=== PATIENT | male | born 1980 | race Caucasian/White ===

== ENCOUNTER → 2017-06-28 | Day surgery (SDC) | payer OTHER ==
[2017-06-23 15:04] VITALS: Ht 177.8 cm; Wt 104.5 kg
[~2017-06-28] VITALS: Ht 177.8 cm; Wt 104.5 kg
[~2017-06-28] MED LIST: ATROPINE SULFATE 0.1 MG/ML 5ML SYR IV PRN; BUPIVACAINE/EPINEPHRINE 0.5% MPF 1:200,000 30 ML VIAL ONE; CEFAZOLIN 2000MG IV PUSH 15 ML IV SCH; DEXAMETHASONE SOD INJ 4 MG/ML VIAL ONE; EpHEDrine SULFATE INJ 50 MG/ML AMP IV PRN; FENTANYL CITRATE INJ 50 MCG/1 ML 2 ML VIAL IV PRN; FENTANYL CITRATE INJ 50 MCG/1 ML 2 ML VIAL ONE; FLUMAZENIL 0.1 MG/1 ML 10 ML VIAL IV PRN; HYDROmorphone INJ 2 MG/ML SYR/VIAL IV PRN; KETOROLAC TROMETHAMINE 30 MG/ML VIAL ONE; LABETALOL HCL IV 5 MG/ML 20ML IV PRN; LACTATED RINGER'S 1000ML 1,000 ML IV SCH; LIDOCAINE HCL 2% 2 ML VIAL (20MG/ML) ONE; MEPERIDINE HCL 25 MG/ML CARP IV PRN; MIDAZOLAM HCL 1 MG/ML 2ML VIAL ONE; MULT-506 PO; NALOXONE HCL 0.4 MG/1 ML VIAL/CARP IV PRN; ONDANSETRON INJ 2 MG/ML 2 ML VIAL IV PRN; ONDANSETRON INJ 2 MG/ML 2 ML VIAL ONE; PHENYLEPHRINE 100MCG/ML 5ML SYR IV PRN; PROPOFOL IV EMULSION 10 MG/ML 20 ML VIAL IV ONE; SODIUM CHLORIDE 0.9% 1000ML 1,000 ML IV SCH; TRAM-453 PO; TRAMADOL HCL 50 MG TAB PO PRN
--- NOTE | 2017-06-28 09:48 | History & Physical Bridge - [place] ---
H&P Re-Evaluation Bridge Note: I have examined the patient, reviewed the History & Physical and in the interval since the performance of the History & Physical I have noted the following changes of clinical significance: No changes noted. I will be doing the surgery in Dr. Arevalo's absence. Risks explained and patient understands. RAMSES Bell MD.
--- NOTE | 2017-06-28 10:42 | [facility] Post Operative Brief Note ---
Immediate Operative Summary Operative Date Jun 28, 2017. Pre-Operative Diagnosis Left Volar Wrist Ganglion Cyst Post-Operative Diagnosis same Procedure(s) Performed Left Volar Wrist Excision Ganglion Cyst Surgeon Dr. Mirtha Bell Ribbon Hand Surgeon(s) Cristobal Sousa PA-C Estimated Blood Loss Minimal Findings Consistent with Post-Op Diagnosis Specimens A. Left Wrist Mass Drains None Anesthesia Type General Complication(s) none
--- NOTE | 2017-06-28 10:42 | Discharge Instructions-SurgCtr ---
Discharge Instructions Date of Service Jun 28, 2017. Visit Reason for Visit: Painful Ganglion Cyst Volar Left Wtist Discharge Discharge Diagnosis / Problem: left wrist mass, ganglion cyst Discharge Goals Goal(s): Decrease discomfort Activity Recommendations Activity Limitations: per Instructions/Follow-up section Anesthesia . Post Anesthesia Instructions: If you have had General Anesthesia or IV Sedation: * Do not drive today. * Resume driving when surgeon permits. * Do not make important decisions or sign legal documents today. * Call surgeon for: 1. Temperature elevations greater than 101 degrees F. 2. Uncontrollable pain. 3. Excessive bleeding. 4. Persistent nausea and vomiting. 5. Medication intolerance (nausea, vomiting or rash). * For nausea and vomiting use only clear liquids such as: tea, soda, bouillon until nausea subsides, then gradually increase diet as tolerated. * If you have any concerns or questions, call your surgeon's office. If physician is unavailable and it is an emergency, call 911 or go to the nearest emergency room. . Instructions / Follow-Up Instructions / Follow-Up MEDICATIONS: * Resume previous medications unless instructed otherwise by your surgeon. * Always take pain medication on a full stomach or with food to avoid upset stomach. * Do not drink alcohol or drive while taking narcotics. * Ibuprofen or Tylenol may be taken if narcotic not needed. SPECIAL CARE INSTRUCTIONS: __ None __ Keep extremity elevated and iced x 48 hours; apply ice 20-30 minutes 8-10 times/day. May remove at night. __ Sling __24 hrs/day __ Remove at night __ Shoulder Immobilizer __ 24 hrs/day __ Remove at night _x_ Dressing _x_ Maintain until seen in office, may shower with plastic over site __ Remove dressings in 24-48 hours and then may shower __ Cover incisions with band-aids after showering __ Do not remove steri-strips Call physician if chills or temperature rises above 102 degrees or pain unrelieved by prescribed pain medications at . follow up in 2 weeks . Diet Recommendations Home Diet: resume previous diet Procedures Procedures Performed: Left Volar Wrist Excision Ganglion Cyst Pending Studies Studies pending at discharge: no Medical Emergencies . Who to Call and When: Medical Emergencies: If at any time you feel your situation is an emergency, please call 911 immediately. . Non-Emergent Contact Non-Emergency issues call your: Surgeon . . "Provider Documentation" section prepared by Saúl Sousa. .
--- NOTE | 2017-06-28 11:39 | Anesthesia Progress Nt - [facility] ---
Anesthesia Post Op Note Date & Time Jun 28, 2017 at 11:39 Vital Signs Pain Intensity: 0 Vital Signs Past 12 Hours Date Time Temp Pulse Resp B/P (MAP) Pulse Ox O2 Delivery O2 Flow Rate FiO2 06/28/17 11:21 74 138/83 (101) 94 Room Air 06/28/17 11:14 73 15 06/28/17 11:14 72 15 96 06/28/17 11:13 36.3 71 20 126/84 96 Room Air 06/28/17 11:13 72 18 96 06/28/17 11:13 72 18 06/28/17 11:12 79 16 95 06/28/17 11:12 79 16 06/28/17 11:11 126/84 06/28/17 11:07 73 16 06/28/17 11:07 72 16 96 06/28/17 11:06 131/79 06/28/17 11:02 79 22 97 06/28/17 11:02 78 22 06/28/17 11:01 145/104 06/28/17 10:58 144/92 06/28/17 10:57 92 21 97 06/28/17 10:57 91 21 06/28/17 10:56 143/117 06/28/17 10:53 86 17 06/28/17 10:53 87 17 100 06/28/17 10:52 86 18 99 06/28/17 10:52 87 18 06/28/17 10:51 123/104 06/28/17 10:49 88 16 100 06/28/17 10:49 87 16 06/28/17 10:46 142/99 06/28/17 10:45 147/89 06/28/17 10:44 36.8 98 20 142/99 99 Mask 8 06/28/17 08:40 36.8 68 16 136/84 (101) 98 Room Air Notes Mental Status: alert / awake / arousable, participated in evaluation Pt Amnestic to Procedure: Yes Nausea / Vomiting: adequately controlled Pain: adequately controlled Airway Patency, RR, SpO2: stable & adequate BP & HR: stable & adequate Hydration State: stable & adequate Anesthetic Complications: no major complications apparent
[2017-06-28 11:46] VITALS: BP 142/82; PULSE 70; O2SAT 97
--- NOTE | 2017-06-28 21:28 | OPERATIVE REPORT ---
DATE OF OPERATION: 06/28/2017 SURGEON: Anibal Bell MD ELECTRIC ACCOUNTING MACHINE OPERATOR: Cristobal Sousa PA-C. PREOPERATIVE DIAGNOSIS: Left volar wrist mass, probable ganglion. POSTOPERATIVE DIAGNOSIS: Same. PROCEDURE PERFORMED: Excisional biopsy of left wrist mass/ganglion. COMPLICATIONS: None. ESTIMATED BLOOD LOSS: Minimal. TOURNIQUET TIME: Fifteen minutes at 250 mmHg. ANESTHESIA: General. SPECIMENS: Left wrist mass sent for pathology. OPERATIVE INDICATIONS: The patient is a 37-year-old gentleman who has had a 3-year history of a left wrist mass which has been persistent. It has become more bothersome just with time. He has failed conservative care and elected to proceed with surgical excision. OPERATIVE SPECIMENS: Left wrist mass sent for pathology. OPERATIVE PROCEDURE: The patient taken to the operating room, identified and placed on the operating table in supine position. All contact areas were appropriately padded. IV antibiotics were provided by anesthesia team. A general anesthetic was implemented by anesthesia team. A left upper extremity tourniquet was placed. The left arm was then prepped and draped in the usual sterile fashion. A Marielos type incision was made in the area of the ganglion. I extended this proximally in a straight line and then over the ganglion made a 45 degree angle incisions in the area of the ganglion in order to avoid crossing the wrist crease at 90 degree angle. Blunt dissection was carried out through the subcutaneous tissue directly down to the wrist mass. The radial artery was draped over the distal the mass. I very carefully dissect the radial artery off the mass and then dissected the mass down to the radial carpal joint. This emanated from the radial carpal joint. I then ellipsed the stalk with some surrounding tissue just about 3 mm in all. This was sent for pathology. Once this was complete, I then used a cautery to cauterizing the area. I irrigated the wound extensively. I injected with 20 mL of 0.5% Marcaine with epinephrine. The tourniquet was then let down for a tourniquet time of 15 minutes. Hemostasis was assured with use of electrocautery. The subcutaneous tissues were then closed with 3-0 Vicryl suture in buried interrupted fashion. Skin was closed with 4-0 nylon suture in a horizontal mattress fashion. The wrist was then cleaned and dried and a sterile dressing of Xeroform, 4 x 4, sterile cast padding and volar splint were applied. The patient then brought out of general anesthesia and transferred to the recovery room in stable condition. The patient tolerated the procedure without complications. All needle and sponge counts were correct at the end of the operation. I attest to the content of the Intraoperative Record and any orders documented therein. Any exceptions are noted below. MTDD
== END | disposition home or self-care (01) ==
LOC: X.SURG 08:33
PROVIDERS: ATTEND Orthopaedic Surgery Sports Medicine
DX: M67.432 Ganglion, left wrist (principal); Z88.6 Allergy status to analgesic agent; Z98.890 Other specified postprocedural states

== ENCOUNTER 2021-06-01 14:45 | Observation (INO) ==
[2021-06-01 14:53] VITALS: TEMP 98.4
--- NOTE | 2021-06-01 15:19 | XRay Report ---
XR chest 1V portable CLINICAL HISTORY: Atypical chest pain. COMPARISON STUDY: Chest radiograph March 14, 2015. FINDINGS: Lung volumes are normal. Lungs are clear. There is no pneumothorax or pleural effusion. Bor derline cardiomegaly is unchanged. Mediastinal contours are normal. There is no evidence for pulmonar y edema. IMPRESSION: No acute cardiopulmonary findings. ACT 112: Negative or not required by law. Electronically signed by: Brandon Jorge M.D. 06/01/2021 3:17 PM
[2021-06-01 15:21] LABS: Basophils # (auto) 0.03 K/uL (0-0.2); Basophils % (auto) 0.4 %; Eosinophils # (auto) 0.41 K/uL (0-0.5); Eosinophils % (auto) 5.6 %; Hematocrit (blood only) 45.2 % (42-52); Immature Granulocytes # (auto) 0.06 K/uL (0.00-0.02); Immature Granulocytes % (auto) 0.8 %; Lymphocytes % (auto) 27.4 %; Mean Corpuscular Hemoglobin 32.6 pg (25-34); Mean Corpuscular Hgb Conc 35.4 g/dL (32-36); Mean Corpuscular Volume 92.1 fL (80-100); Mean Platelet Volume 10.3 fL (7.4-10.4); Monocytes % (auto) 6.8 %; Neutrophils # (auto) 4.31 K/uL (1.4-6.5); Platelet Count 222 K/uL (130-400); RDW Coefficient of Variation 12.4 % (11.5-14.5); RDW Standard Deviation 41.9 fL (36.4-46.3); Red Blood Count 4.91 M/uL (4.7-6.1); White Blood Count 7.31 K/uL (4.8-10.8)
[2021-06-01 15:31] LABS: Partial Thromboplastin Ratio 1.1; Partial Thromboplastin Time 27.9 Seconds (21.0-31.0)
[2021-06-01 15:49] LABS: Troponin I < 0.03 ng/ml (0-0.04)
[2021-06-01 15:50] LABS: Alanine Aminotransferase 31 U/L (7-52); Albumin Globulin Ratio 1.7 (0.9-2); Albumin Level 4.5 gm/dl (3.4-5.0); Alkaline Phosphatase 52 U/L (34-104); Anion Gap 8 (3-11); Aspartate Aminotransferase 23 U/L (13-39); BUN Creatinine Ratio 14.2 (10-20); Bilirubin,Total 0.5 mg/dl (0.2-1.0); Blood Urea Nitrogen 16 mg/dl (6-23); Calcium 9.3 mg/dl (8.5-10.1); Carbon Dioxide 29 mmol/L (21-32); Chloride 104 mmol/L (98-107); Creatinine Clr Calc Pharmacy 108.4 ml/min; Est GFR (African American) 92.4 ml/min; Est GFR (Non-African American) 79.7 ml/min; Globulin 2.6 gm/dl (2.5-4.0); Glucose 94 mg/dl (70-99(Fasting)); Potassium 4.1 mmol/L (3.5-5.1); Sodium 141 mmol/L (136-145); Total Protein 7.1 gm/dl (6.0-8.3)
--- NOTE | 2021-06-01 16:41 | Emergency Department Note ---
History of Present Illness General Chief Complaint: Chest Pain Stated Complaint: CHEST PAIN Time Seen by Provider: 06/01/21 16:23 History of Present Illness Provider Complaint: chest pain Onset (ago): day(s) 2 Duration: intermittent Onset: during exertion Pain Location: substernal Pain Radiation: none Severity: moderate Maximum Pain Intensity: 6 Current Pain Intensity: 6 Quality: + heaviness Relieved By: + rest Exacerbated By: + exertion Context: no recent illness, no recent surgery, no recent immobilization, no recent travel, no trauma/injury or no history of DVT/PE Associated symptoms: + dyspnea; no nausea, no vomiting, no diaphoresis, no sense of impending doom, no syncope, no palpitations, no fever, no cough or no leg swelling Home Medications Medication Instructions Recorded Confirmed Type Multivitamin 1 tab PO 3XWK #0 tab 06/23/17 History Allergies Allergy/AdvReac Type Severity Reaction Status Date / Time codeine AdvReac Intermediate N/V Verified 06/28/17 08:52 Past Med/Surg History Medical History No chronic diseases present Surgical History No significant past surgical history Social History Smoking Status: Never smoker Preferred Language: Malawian Feels Safe at Home: Yes Review of Systems A total of 10 systems reviewed and were otherwise negative Physical Exam Vital Signs Vital Signs - 24 hr 06/01/21 14:49 Temperature 36.9 C Temperature Source Temporal Artery Scan Pulse Rate 67 Respiratory Rate 18 Respiratory Effort / Characteristics Non-Labored Respiratory Depth Normal Respiratory Pattern Regular Blood Pressure 149/97 H Blood Pressure Mean 114 Pulse Oximetry 98 Oxygen Delivery Method Room Air Sepsis Recent Fever Within 48 Hours No Sepsis New/Unexplained Change in Mental Status No Sepsis Action Taken by Nursing No Action Required Physical Exam GENERAL: He is oriented to person, place, and time. He appears well-developed and well-nourished. He does not appear distressed. HENT: Exam performed. - Head: Normocephalic and atraumatic. - Right Ear: External ear normal. No mastoid tenderness. - Left Ear: External ear normal. No mastoid tenderness. - Mouth/Throat: The oropharynx is clear and moist. No trismus in the jaw. No dental abscesses or uvula swelling. No oropharyngeal exudate or tonsillar abscesses. EYES: Conjunctivae and EOM are normal. Pupils are equal, round, and reactive to light. Right eye exhibits no discharge. Left eye exhibits no discharge. No scleral icterus. NECK: Normal range of motion. Neck supple. No JVD present. No spinous process tenderness present. No carotid bruit present. No rigidity. No tracheal deviation and normal range of motion present. No Brudzinski's sign and no Kernig's sign noted. CV: Normal rate, regular rhythm, normal heart sounds and intact distal pulses. There is no peripheral edema. Palpable radial pulses bue. PULM/CHEST: Effort normal and breath sounds normal. No respiratory distress. No stridor. He has no wheezes. He has no rales. - Chest Wall: He exhibits no tenderness. ABD: The abdomen is soft. Bowel sounds are normal. He has no distension. No mass is present. There is no tenderness. There is no rebound, no guarding, no Curiel's sign and no tenderness at McBurney's point. Rovsig negative. MUSC/SKEL: Normal range of motion. There is no peripheral edema, tenderness or deformity. LYMPH: No cervical adenopathy. NEURO: He is alert and oriented to person, place, and time. He has normal strength. No cranial nerve deficit or sensory deficit. Coordination and gait normal. GCS eye subscore is 4. GCS verbal subscore is 5. GCS motor subscore is 6. Cerebellar tests wnl. SKIN: Skin is warm and dry. He is not diaphoretic. PSYCH: He has a normal mood and affect. Behavior is normal. Judgment and thought content normal. Course Course 162: The patient was evaluated in room [facility]. A complete history and physical exam was performed Cardiac monitoring: An order was placed for continuous cardiac monitoring. The monitor shows a rate of 70 with sinus rhythm Patient was seen during a time of extreme volume and extreme acuity during the COVID-19 pandemic. Nursing triage protocols were initiated and labs were drawn by protocol in the triage area. Received a call from [facility] etiology Dr. Mata. He states that the patient started having chest pain after shoveling snow. He states he did an outpatient echo which showed normal cardiac motion and no wall motion abnormalities as well as a thickened pericardium. Dr. Mata states he thinks he has pericarditis and the patient was started on colchicine and NSAIDs. Dr. Mata states he wants the patient to be admitted to the hospitalist team and that his team will do a catheterization on the patient tomorrow morning. He states no need for heparin at this time. [facility] hospitalist team will be contacted. Medical Decision Making Laboratory Data Result diagrams: 06/01/21 15:08 06/01/21 15:08 Labs: Lab Results 06/01/21 06/01/21 06/01/21 Range/Units 15:08 15:08 15:08 WBC 7.31 (4.8-10.8) K/uL RBC 4.91 (4.7-6.1) M/uL Hgb 16.0 (14.0-18.0) g/dL Hct 45.2 (42-52) % MCV 92.1 (80-100) fL MCH 32.6 (25-34) pg MCHC 35.4 (32-36) g/dL RDW Std Deviation 41.9 (36.4-46.3) fL RDW Coeff of Pradeep 12.4 (11.5-14.5) % Plt Count 222 (130-400) K/uL MPV 10.3 (7.4-10.4) fL Immature Gran % (Auto) 0.8 % Neut % (Auto) 59.0 % Lymph % (Auto) 27.4 % Christian % (Auto) 6.8 % Eos % (Auto) 5.6 % Baso % (Auto) 0.4 % Neut # (Auto) 4.31 (1.4-6.5) K/uL Lymph # (Auto) 2.00 (1.2-3.4) K/uL Christian # (Auto) 0.50 (0.11-0.59) K/uL Eos # (Auto) 0.41 (0-0.5) K/uL Baso # (Auto) 0.03 (0-0.2) K/uL Immature Gran # (Auto) 0.06 H (0.00-0.02) K/uL PT 10.0 (9.0-12.0) Seconds INR 1.0 (0.9-1.1) APTT 27.9 (21.0-31.0) Seconds PTT Ratio 1.1 Sodium 141 (136-145) mmol/L Potassium 4.1 (3.5-5.1) mmol/L Chloride 104 (98-107) mmol/L Carbon Dioxide 29 (21-32) mmol/L Anion Gap 8 (3-11) BUN 16 (6-23) mg/dl Creatinine 1.13 (0.6-1.4) mg/dl Est Cr Clr Drug Dosing 108.4 ml/min Est GFR ( Amer) 92.4 ml/min Est GFR (Non-Af Amer) 79.7 ml/min BUN/Creatinine Ratio 14.2 (10-20) Glucose 94 (70-99(Fasting)) mg/dl Calcium 9.3 (8.5-10.1) mg/dl Total Bilirubin 0.5 (0.2-1.0) mg/dl AST 23 (13-39) U/L ALT 31 (7-52) U/L Alkaline Phosphatase 52 (34-104) U/L Troponin I < 0.03 (0-0.04) ng/ml Total Protein 7.1 (6.0-8.3) gm/dl Albumin 4.5 (3.4-5.0) gm/dl Globulin 2.6 (2.5-4.0) gm/dl Albumin/Globulin Ratio 1.7 (0.9-2) Imaging Data Chest x-ray: Radiologist's impression: Chest X-Ray 06/01/21 14:53 XR chest 1V portable CLINICAL HISTORY: Atypical chest pain. COMPARISON STUDY: Chest radiograph March 14, 2015. FINDINGS: Lung volumes are normal. Lungs are clear. There is no pneumothorax or pleural effusion. Borderline cardiomegaly is unchanged. Mediastinal contours are normal. There is no evidence for pulmonary edema. IMPRESSION: No acute cardiopulmonary findings. ACT 112: Negative or not required by law. Electronically signed by: Brandon Jorge M.D. 06/01/2021 3:17 PM ECG Data Indication: chest pain Rate (beats per minute): 69 Rhythm: normal sinus Findings: + T-wave inversion (III and avF); no ST depression, no ST elevation or no prolonged QT MDM Narrative The patient was evaluated in room [facility]. A complete history and physical ex am was performed Cardiac monitoring: An order was placed for continuous cardiac monitoring. The monitor shows a rate of 70 with sinus rhythm Patient was seen during a time of extreme volume and extreme acuity during the COVID-19 pandemic. Nursing triage protocols were initiated and labs were drawn by protocol in the triage area. Received a call from [facility] etiology Dr. Mata. He states that the patient started having chest pain after shoveling snow. He states he did an outpatient echo which showed normal cardiac motion and no wall motion abnormalities as well as a thickened pericardium. Dr. aMta states he thinks he has pericarditis and the patient was started on colchicine and NSAIDs. Dr. Mata states he wants the patient to be admitted to the hospitalist team and that his team will do a catheterization on the patient tomorrow morning. He states no need for heparin at this time. [facility] hospitalist team will be contacted. Impression & Plan Chest pain Discharge Plan Visit Data Chief Complaint: Chest Pain Stated Complaint: CHEST PAIN Discharge Problem: Chest pain Patient Disposition: Being Evaluated by Hospitalist Forms Stand Alone Forms: [employer] Prescriptions Prescriptions: No Action Multivitamin tablet 1 tab PO 3XWK Qty: 0 RF: 0 Referrals Referrals: Claudio Meza, [Primary Care Provider] -
--- NOTE | 2021-06-01 17:33 | History & Physical Report ---
Date of Service June 01, 2021 Assessment & Plan (1) Chest pain: Plan: This is a 41-year-old male with PMH of dyslipidemia GERD and sleep apnea who presents with continued chest pain over the past few days. Seen by Dr. Mata in clinic yesterday, felt to be acute pericarditis ECG with NSR and non-specific T wave abn in lateral leads Resting echo with normal wall motion with a thickened pericardium Started on colchicine 0.6 mg PO BID x 3 months and ibuprofen 600 mg TID for 1 month - continue Continued to have significant central chest discomfort overnight despite attempting to sleep in upright position and was directed to come to ED for further evaluation VSS, troponin <0.03, CXR with no acute cardiopulmonary findings Trend troponin, monitor on tele, routine cardiology consult, NPO at midnight (2) GERD (gastroesophageal reflux disease): Plan: Continue PPI, increased to BID while on nsaids (3) DEEPTI (obstructive sleep apnea): Plan: CPAP HS (4) Obesity (BMI 30-39.9): Plan: Following with OP weight mgmt. Continue Wellbutrin DVT Ppx: SQ heparin Code status: FULL PCP: Camilo Meza Dispo: Observation PCU Patient seen in collaboration with Dr. Herrera. Please see addendum. History of Present Illness Chief Complaint: CP Primary Care Provider: Claudio Meza, This is a 41-year-old male with PMH of dyslipidemia GERD and sleep apnea who presents with continued chest pain over the past few days. First had symptoms on Monday with activity but peaked on Monday when shoveling snow. Feels like heart is "beating too hard" and describes pain as a centrally located, constant dull ache. Discomfort is non-radiating and worse with lying down. Feels like he is breathing heavier than he should be. Does endorse a viral illness 2 weeks ago but has felt well for over the past week. Saw Dr. Mata in clinic yesterday who felt picture was consistent with acute pericarditis. ECG with NSR and non-specific T wave abn in lateral leads. Resting echo with normal wall motion with a thickened pericardium. Was started on colchicine 0.6 mg PO BID for 3 months and ibuprofen 600 mg TID for 1 month. Continued to have significant central chest discomfort overnight despite attempting to sleep in upright position and was directed to come to ED for further evaluation. Denies fever, chills, headache, palpitations, wheezing, N/V, abdominal pain, dysuria, diarrhea or constipation. Allergies Allergy/AdvReac Type Severity Reaction Status Date / Time codeine AdvReac Intermediate N/V Verified 06/01/21 17:11 Home Medications Medication Instructions Recorded Confirmed Type bupropion HCl 150 mg tablet,12 hr 150 mg PO BID 06/01/21 06/01/21 History sustained-release colchicine 0.6 mg tablet 0.6 mg PO BID 06/01/21 06/01/21 History esomeprazole magnesium 40 mg 40 mg PO BID 06/01/21 06/01/21 History capsule,delayed release hydrochlorothiazide 12.5 mg capsule 12.5 mg PO QAM 06/01/21 06/01/21 History ibuprofen 600 mg tablet 600 mg PO TID 06/01/21 06/01/21 History multivitamin 1 tab PO QAM 06/01/21 06/01/21 History Past Med/Surg History Medical History (Updated 06/01/21 @ 19:06 by Keke Bell PA-C) GERD (gastroesophageal reflux disease) Obesity (BMI 30-39.9) DEEPTI (obstructive sleep apnea) Surgical History H/O wrist surgery Family History Other Heart disease Social History Smoking Status: Never smoker Hx Alcohol Use: Yes Alcohol Intake Frequency: 2-3 x/Week Hx Substance Use: No Preferred Language: [place] Irish Feels Safe at Home: Yes Review of Systems Review of Systems: At least ten systems reviewed and negative except as noted in the HPI. Physical Exam Physical Exam: General Appearance: WD/WN, vitals as above, NAD, sitting up in bed, pleasant, conversing easily Head: normocephalic, atraumatic Eyes: normal inspection, PERRL, conjunctivae normal, anicteric sclerae ENT: external ear and nose normal, oropharynx normal Neck: normal visual inspection, trachea midline, no thyromegaly Respiratory: normal respiratory effort, lungs clear to auscultation, no wheeze, rales, rhonchi. No accessory muscle use Cardiovascular: regular rate, rhythm, no murmur, normal peripheral pulses, no BLE edema. Vessels: no JVD Chest: normal inspection of chest Abdomen/GI: normal bowel sounds, soft, nontender, no hepatosplenomegaly Extremities/Musculoskeletal: no cyanosis or clubbing, extremities motor strength 5/5 Neurologic: PERRL, EOMI, accommodation nl, no face palsy, no dysarthria, CN's II-XI intact bilaterally and moves all extremities Psychiatric: A+Ox3, euthymic affect Skin: no rashes, normal color, warm/dry Results & Data Results & Data ([facility]) Vital Signs (Past 12 Hours) Vital Signs Temp Pulse Resp BP Pulse Ox 06/01/21 14:49 36.9 C 67 18 149/97 H 98 Supervising Physician Co-Signing Physician Notes Pt is a 41 y/o M with hx of GERD, HTN, DEEPTI, Anxiety and recent dx of Pericarditis admitted for worsening KING and Chest pain. Pt was dx with pericarditis 2 days ago and started on colchicine and ibuprofen. Per and pt, chest discomfort gotten worse overnight and pt continues to have KING. PE: NAD Cards: Normal S1/S2, no murmur Lungs: CTA, no wheezing or crackles Abd: ND, NT, normal BS MSK: No LE edema Psych: AAOx3, normal affect A/P: Chest discomfort and recent hx of pericarditis: - Trop neg and VSS - EKG: NSR, TWI on III, No ST elevation or MT depression - Echo from 07/01 showed EF of 60-64% and no pericardial effusion -per pt he was told by assistant art director that he is likely getting cardiac cath tomorrow ---- will keep the pt NPO after MN ---- trend trop ---- informed cardiology team Agree with A/P by Keke Bell PA-C (1) Chest pain Chest pain type: unspecified Qualified Code(s): R07.9 - Chest pain, unspecified
--- NOTE | 2021-06-01 18:00 | Electrocardiogram Report ---
Test Reason : Blood Pressure : / mmHG Vent. Rate : 069 BPM Atrial Rate : 069 BPM P-R Int : 132 ms QRS Dur : 090 ms QT Int : 416 ms P-R-T Axes : 022 060 -06 degrees QTc Int : 445 ms Normal sinus rhythm No previous ECGs available Confirmed by Rafael Brock ([id number]) on 06/01/2021 5:59:55 PM Referred By: Confirmed By:Hudson Brock
[2021-06-01] MEDS ORDERED: ONDANSETRON INJ 2 MG/ML 2 ML VIAL IV PRN (20:23)
[2021-06-01] MEDS ORDERED: POLYETHYLENE (MIRALAX) 17 GM PACK PO PRN (20:23)
[2021-06-01] MEDS ORDERED: ACETAMINOPHEN 325 MG TAB PO PRN (20:23)
[2021-06-01] MEDS: COLCHICINE 0.6 MG TAB PO SCH (22:02)
[2021-06-01] MEDS: PANTOprazole 40 MG TAB PO SCH (22:02)
[2021-06-01] MEDS: IBUPROFEN 600 MG TAB PO SCH (22:03)
[2021-06-01] MEDS: HEPARIN SOD 5,000 UNIT/0.5 ML VIAL SQ SCH (22:03)
[2021-06-01] MEDS: buPROPion SR 150 MG TABCR PO SCH (22:03)
[2021-06-02 03:01] LABS: Hematocrit (blood only) 45.2 % (42-52); Hemoglobin 15.8 g/dL (14.0-18.0); Mean Corpuscular Hemoglobin 32.7 pg (25-34); Mean Corpuscular Volume 93.6 fL (80-100); Mean Platelet Volume 10.2 fL (7.4-10.4); Platelet Count 223 K/uL (130-400); RDW Coefficient of Variation 12.5 % (11.5-14.5); RDW Standard Deviation 42.3 fL (36.4-46.3); Red Blood Count 4.83 M/uL (4.7-6.1); White Blood Count 6.83 K/uL (4.8-10.8)
[2021-06-02 03:19] LABS: Anion Gap 6 (3-11); BUN Creatinine Ratio 12.8 (10-20); Blood Urea Nitrogen 16 mg/dl (6-23); Calcium 9.2 mg/dl (8.5-10.1); Carbon Dioxide 31 mmol/L (21-32); Chloride 104 mmol/L (98-107); Est GFR (African American) 81.8 ml/min; Est GFR (Non-African American) 70.6 ml/min; Glucose 90 mg/dl (70-99(Fasting)); Potassium 4.1 mmol/L (3.5-5.1); Sodium 141 mmol/L (136-145)
[2021-06-02 03:42] LABS: Troponin I < 0.03 ng/ml (0-0.04)
[2021-06-02] MEDS: HEPARIN SOD 5,000 UNIT/0.5 ML VIAL SQ SCH ×2 (05:59→15:09)
[2021-06-02] MEDS ORDERED: hydroCHLOROthiazide 25 MG TAB PO SCH (09:00)
[2021-06-02] MEDS ORDERED: MULTIVITAMIN TAB PO SCH (09:00)
--- NOTE | 2021-06-02 09:42 | Cardiology Consultation ---
Date of Consultation June 02, 2021 Assessment & Plan (1) Chest pain: (2) Pericarditis: (3) Anxiety: Given worsening chest discomfort overnight despite initiation of anti- inflammatories we will proceed with cardiac catheterization today to rule out ischemic disease. The procedure along with risks, benefits and alternatives discussed with the patient and his at the bedside both in agreement that they wish to proceed. Further recommendations to follow catheterization. History of Present Illness Reason for Consultation: chest pain Requesting Physician: SCOTTIE Attending Physician: Gil Lai MD History of Present Illness Mr. Lucero a very pleasant and healthy 41-year-old gentleman whose arranged cardiac evaluation with me on 05/31/21 for chest discomfort. He states he has been in his normal state of health recently up until a few days ago. Approximately 3 days ago at work he started noticing some chest discomfort. He described it as a dull achy pressure sensation that radiated across his left precordium. 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 It progressed to the point where he was significantly concerned and alerted his to the discomfort. He declined going to the emergency room at that time. Upon further questioning, he denies any overt URI symptoms but has been around multiple people with viral syndromes at work at the longterm. Allergies Allergy/AdvReac Type Severity Reaction Status Date / Time codeine AdvReac Intermediate N/V Verified 06/01/21 17:11 Home Medications Medication Instructions Recorded Confirmed Type bupropion HCl 150 mg tablet,12 hr 150 mg PO BID 06/01/21 06/01/21 History sustained-release colchicine 0.6 mg tablet 0.6 mg PO BID 06/01/21 06/01/21 History esomeprazole magnesium 40 mg 40 mg PO BID 06/01/21 06/01/21 History capsule,delayed release hydrochlorothiazide 12.5 mg capsule 12.5 mg PO QAM 06/01/21 06/01/21 History ibuprofen 600 mg tablet 600 mg PO TID 06/01/21 06/01/21 History multivitamin 1 tab PO M 06/01/21 06/01/21 History Patient History Medical History GERD (gastroesophageal reflux disease) Obesity (BMI 30-39.9) DEEPTI (obstructive sleep apnea) Surgical History H/O wrist surgery Family History Other Heart disease Social History Smoking Status: Never smoker Hx Alcohol Use: Yes Alcohol Intake Frequency: 2-3 x/Week Hx Substance Use: No Preferred Language: Sinhala Communication Ability: Effective Ichthyologist Required: No Beliefs That Will Affect Care: None Current Living Situation: Spouse Feels Safe at Home: Yes Assistive Devices: None Review of Systems Review of Systems: All systems reviewed & are unremarkable except as noted in HPI & below Physical Exam Physical Exam: Physical Exam: General: Awake, alert and oriented x 3. No acute distress. HEENT: Normocephalic, atraumatic. Pupils equal, round and reactive to light and accommodation. Extraocular muscles are intact. Anicteric sclera. Moist mucous membranes. Neck: No JVD. No bruit. Cardiovascular: Regular. No S-4. Normal S-1 and S-2. No S-3. No murmurs, rubs or gallops. Pulmonary: Clear to auscultation bilaterally. No rales, rhonchi, or wheezing. Abdomen: Bowel sounds x 4, soft. No rebound, guarding or tenderness. No organomegaly. Extremities: No clubbing, cyanosis or edema. +2 pedal pulses bilaterally. Skin: Warm and dry. Results & Data ([facility]) Vital Signs (Past 12 Hours) Vital Signs Pulse Resp BP Pulse Ox 06/02/21 03:15 62 16 131/85 96 06/02/21 00:39 52 L 18 186/109 H 98 06/01/21 23:59 56 L 16 128/67 97 Diagnostic Findings Interpretation Summary of 2D echo performed 05/31/21 A focused goal directed study was performed per provider's order. There was normal sinus rhythm during the examination. No LV segmental wall motion abnormalities. The qualitative LV ejection fraction is 60-64% (normal). No pericardial effusion is noted. (1) Chest pain Chest pain type: unspecified Qualified Code(s): R07.9 - Chest pain, unspecified
[2021-06-02] MEDS ORDERED: niCARdipine HCL INJ 2.5 MG/ML 10 ML AMP ONE (10:23)
[2021-06-02] MEDS ORDERED: fentaNYL citrate 100 MCG/2 ML VIAL ONE (10:23)
[2021-06-02] MEDS ORDERED: HEPARIN (PORCINE) 1000 UNIT/ML 10 ML (CATH LAB USE ONLY) ONE (10:23)
[2021-06-02] MEDS ORDERED: NITROGLYCERIN/D5W 100MCG/ML 20ML SYR ONE (10:24)
[2021-06-02] MEDS ORDERED: MIDAZOLAM HCL 1 MG/ML 2ML VIAL ONE (10:24)
[2021-06-02] MEDS ORDERED: LIDOCAINE 1% LOCAL 20 ML VIAL ONE (10:26)
[2021-06-02] MEDS ORDERED: ACETAMINOPHEN 325 MG TAB PO PRN (11:01)
--- NOTE | 2021-06-02 11:07 | Cardiac Catheterization ---
Cardiac Cath Procedure Brief Procedure Date June 02, 2021 Pre-Procedure Diagnosis Pre-Procedure Diagnosis: Angina and Positive Stress Test AUC Score AUC Score: 8 Post-Procedure Diagnosis Post-Procedure Diagnosis: Normal Coronary Arteries and Normal LV Systolic Function Procedure(s) Performed Procedure(s) Performed: Coronary Angiography, Left Heart Cath and LV Angiography Party Plan Sales Agent Ryan Davis MD Wax Specialist(s) Jerry Hyunh Estimated Blood Loss Estimated Blood Loss: <15cc Medication(s) Medication(s): Fentanyl (12.5 mcg IVx2), Heparin (5000 units IV), Lidocaine 1% (Local infiltration access site), Nicardipine (250 mcg intra-arterial after arterial sheath insertion) and Versed (1 mg IVx2) Preliminary Findings Right dominant coronary anatomy Normal left her systolic function Systolic and left end-diastolic hypertension Recommendations Recommendations: Medical Therapy and/or Counseling Fluids (cc crystalloids) Fluids (cc crystalloids): 69 Anesthesia Start time: 1030 stop time: 1054 Procedural Complication(s) None Disposition Decorator Mannequin Holding/Recovery
--- NOTE | 2021-06-02 11:11 | Cardiac Catheterization ---
Cardiac Cath Procedure Full Procedure Date June 02, 2021 Pre-Procedure Diagnosis Pre-Procedure Diagnosis: Angina and Positive Stress Test AUC Score AUC Score: 8 Post-Procedure Diagnosis Post-Procedure Diagnosis: Normal Coronary Arteries and Normal LV Systolic Function Procedure(s) Performed Procedure(s) Performed: Coronary Angiography, Left Heart Cath and LV Angiography Administrative Support Specialist Ryan Davis MD Baseball Inspector(s) Jerry Huynh Estimated Blood Loss Estimated Blood Loss: <15cc Medication(s) Medication(s): Fentanyl (12.5 mcg IVx2), Heparin (5000 units IV), Lidocaine 1% (Local infiltration access site), Nicardipine (250 mcg intra-arterial after arterial sheath insertion) and Versed (1 mg IVx2) Summary of Findings Final impression: Essentially normal right dominant coronary anatomy with minimal luminal irregularities only Normal left ventricular systolic function Systolic and left end-diastolic hypertension Procedure: Left heart catheterization coronary and LV angiography Vascular Access: Right radial artery without difficulty Catheters: 6 Ethiopian long glide sheath, 5 Ethiopian [place] (coronary ostia unable to be obtained with this catheter), JL 3.5, 5 Ethiopian JR4, 5 Ethiopian straight pigtail Coronary angiography: Right dominant anatomy Left main: Short and free of disease and calcification Left anterior descending: Type III in distribution giving rise to a trivial first diagonal branch and a bifurcating second diagonal branch. The left anterior descending has tortuosity and minimal luminal irregularities in its midportion there is no obstructive disease Left circumflex: Large but nondominant. It gives rise to a trivial first marginal been a large bifurcating obtuse marginal before continuing along the AV groove as a vestigial vessel. There is no disease in the left circumflex Right coronary artery: Large caliber and dominant distribution. It gives rise to a conus and sinoatrial branch a small mid vessel right ventricular branch at the AV groove, a long posterior descending artery. Along the AV groove it gives rise to 2 additional posterior ventricular branches. There is no disease in the right coronary artery LV angiography: Left ventricle normal in size and function EF 65% there were occasional ventricular ectopy during injection Hemodynamics: Left ventricular end-diastolic pressure mildly elevated at 22-24 with elevated systolic pressures 150-160 during Hemodynamics Rest Ao:: 151/92/118 Final Ao: 163/99/127 LV: 153/7/24 Recommendations Recommendations: Medical Therapy and/or Counseling Specimens Specimens: None Radiation Exposure (mGy) 1159 Contrast (mls) 110 Fluids (cc crystalloids) Fluids (cc crystalloids): 69 Anesthesia Start time: 1030 stop time: 1054 Procedural Complication(s) None Disposition First Line Supervisor Holding/Recovery I attest to the content of the Intraoperative Record and any orders documented therein. Any exceptions are noted below. ACC Data: First Line Supervisor Cardiac Status Clinical evaluation leading to the procedure 41-year-old male with cardiovascular risk factors of low HDL dyslipidemia, hypertension, family history with new onset rest left-sided chest pain/pressure after physical exertion CAD Presenation: Stable angina Anginal Classification: CCS IV Heart Failure: No Cardiogenic Shock within 24 Hours: No Cardiac Arrest within 24 Hours: No Imaging Studies Past 6 Months: Yes Stress Studies Past 6 Months: No Standard Exercise Test: No Stress Echocardiogram: No Stress Testing w/SPECT MPI: No Cardiac CTA: No Coronary Anatomy Dominant: Right Left Main (% Stenosis): Normal (Short) LAD (% Stenosis): Normal (Type III in distribution with minimal luminal irregularities, tortuous) D1 (% Stenosis): Normal (Small) D2 (% Stenosis): Normal (Moderate size) Circumflex (% Stenosis): Normal OM1 (% Stenosis): Normal (Trivial) OM2 (% Stenosis): Normal (Very large bifurcating vessel) RCA (% Stenosis): Normal R PDA (% Stenosis): Normal R PL1 (% Stenosis): Normal R PL2 (% Stenosis): Normal Left Ventricular Angiography EF (%): 65 Mitral Regurgitation: None Diagnostic Physicians Name: Ryan Davis MD Status: Urgent Closure Device Percutaneous Entry Location: Radial Closure Device: Radial Band Recommendations: Medical Therapy and/or Counseling
[2021-06-02] MEDS ORDERED: SODIUM CHLORIDE 0.9% 1000ML 1,000 ML IV SCH (11:15)
[2021-06-02] MEDS: COLCHICINE 0.6 MG TAB PO SCH (11:43)
[2021-06-02] MEDS: IBUPROFEN 600 MG TAB PO SCH ×2 (11:43→15:10)
[2021-06-02] MEDS: buPROPion SR 150 MG TABCR PO SCH (11:43)
[2021-06-02] MEDS: PANTOprazole 40 MG TAB PO SCH (11:44)
--- NOTE | 2021-06-02 12:50 | Hospitalist Progress Note ---
Date of Service June 02, 2021 Assessment & Plan (1) Chest pain: Plan: Patient is a 41 yr male with PMH of dyslipidemia GERD and sleep apnea who presents with continued chest pain over the past few days. Chest Pain Currently being treated for acute pericarditis S/P Cardiac Cath: Essentially normal right dominant coronary anatomy with minimal luminal irregularities only. Normal left ventricular systolic function. Systolic and left end-diastolic hypertension -CXR:No acute cardiopulmonary findings. Cardiac enzymes negative EKG showed no signs of acute ischemia Currently on colchicine, ibuprofen Needs follow-up with cardiology upon discharge Appreciate cardiology input (2) GERD (gastroesophageal reflux disease): Plan: Continue PPI Increased PPI to BID while on Nsaids (3) DEEPTI (obstructive sleep apnea): Plan: CPAP HS (4) Obesity (BMI 30-39.9): Plan: Following with OP weight mgmt. Continue Wellbutrin DVT Px: SQ heparin Code status: FULL CODE Admission and Anticipated Discharge Date Admission Date: June 01, 2021 Subjective Patient is seen and examined at bedside States having minimal chest discomfort this morning Had cardiac catheterization earlier today Denies any dyspnea, dizziness, nausea, abdominal pain Family at bedside Offers no other complaints Review of Systems Review of Systems: All systems reviewed & are unremarkable except as noted in Subjective Physical Exam Physical Exam: Physical Exam: Vitals signs as noted above General Appearance:Moderately built and nourished, no apparent distress Head: normocephalic, Atraumatic Eyes: normal inspection, EOMI Neck: supple, Trachea midline Respiratory/Chest: Normal breath sounds, CTA Cardiovascular: S1, S2, No murmur Abdomen/GI:Soft, Non tender, Bowel sounds present Extremities/Musculoskeletal:normal inspection, no edema Neurologic/Psych:AAOX3, grossly no focal neurological deficits Skin: normal color, warm Results & Data Results & Data ([facility]) Vital Signs (Past 12 Hours) Vital Signs Temp Pulse Resp BP Pulse Ox 06/02/21 11:15 65 20 137/91 95 06/02/21 11:00 68 20 131/92 95 06/02/21 10:09 65 06/02/21 08:00 36.9 C 68 18 136/82 96 06/02/21 03:15 62 16 131/85 96 Laboratory Results Short CBC 06/01/21 06/02/21 Range/Units 15:08 02:46 WBC 7.31 6.83 (4.8-10.8) K/uL Hgb 16.0 15.8 (14.0-18.0) g/dL Hct 45.2 45.2 (42-52) % Plt Count 222 223 (130-400) K/uL BMP 06/01/21 06/02/21 15:08 02:46 Sodium 141 141 Potassium 4.1 4.1 Chloride 104 104 Carbon Dioxide 29 31 BUN 16 16 Creatinine 1.13 1.25 Glucose 94 90 Calcium 9.3 9.2 Cardiac Enzymes 06/01/21 06/01/21 06/02/21 Range/Units 15:08 21:09 02:46 Troponin I < 0.03 < 0.03 < 0.03 (0-0.04) ng/ml Liver Function 06/01/21 Range/Units 15:08 Total Bilirubin 0.5 (0.2-1.0) mg/dl AST 23 (13-39) U/L ALT 31 (7-52) U/L Alkaline Phosphatase 52 (34-104) U/L Albumin 4.5 (3.4-5.0) gm/dl (1) Chest pain Chest pain type: unspecified Qualified Code(s): R07.9 - Chest pain, unspecified
[2021-06-02 13:16] VITALS: O2SAT 98
--- NOTE | 2021-06-02 13:45 | Communication Note ---
Date of Service: June 02, 2021 Patient seen pre and post cardiac catheterization. Access site healing well. Results of the study discussed in detail with patient and with his . No signs of obstructive coronary disease and normal overall LV systolic function. Mild elevation of left end-diastolic pressure. Previous pain is improved Impression stable for discharge today on current medical regimen. Standard radial post catheter instructions. Will likely warrant increase in antihypertensive therapies on reassessment post discharge. Appointment scheduled 06/22/2021
--- NOTE | 2021-06-02 15:11 | Discharge Summary ---
Date of Service June 02, 2021 Admission HPI Per Admitting Provider This is a 41-year-old male with PMH of dyslipidemia GERD and sleep apnea who presents with continued chest pain over the past few days. First had symptoms on Monday with activity but peaked on Monday when shoveling snow. Feels like heart is "beating too hard" and describes pain as a centrally located, constant dull ache. Discomfort is non-radiating and worse with lying down. Feels like he is breathing heavier than he should be. Does endorse a viral illness 2 weeks ago but has felt well for over the past week. Saw Dr. Mata in clinic yesterday who felt picture was consistent with acute pericarditis. ECG with NSR and non-specific T wave abn in lateral leads. Resting echo with normal wall motion with a thickened pericardium. Was started on colchicine 0.6 mg PO BID for 3 months and ibuprofen 600 mg TID for 1 month. Continued to have significant central chest discomfort overnight despite attempting to sleep in upright position and was directed to come to ED for further evaluation. Denies fever, chills, headache, palpitations, wheezing, N/V, abdominal pain, dysuria, diarrhea or constipation. Admission Exam Per Admitting Provider Physical Exam Physical Exam: General Appearance:WD/WN, vitals as above, NAD, sitting up in bed, pleasant, conversing easily Head: normocephalic, atraumatic Eyes:normal inspection, PERRL, conjunctivae normal, anicteric sclerae ENT: external ear and nose normal, oropharynx normal Neck: normal visual inspection, trachea midline, no thyromegaly Respiratory:normal respiratory effort, lungs clear to auscultation, no wheeze, rales, rhonchi. No accessory muscle use Cardiovascular: regular rate, rhythm, no murmur, normal peripheral pulses, no BLE edema. Vessels: no JVD Chest: normal inspection of chest Abdomen/GI: normal bowel sounds, soft, nontender, no hepatosplenomegaly Extremities/Musculoskeletal: no cyanosis or clubbing, extremities motor strength 5/5 Neurologic: PERRL, EOMI, accommodation nl, no face palsy, no dysarthria, CN's II-XI intact bilaterally and moves all extremities Psychiatric:A+Ox3, euthymic affect Skin: no rashes, normal color, warm/dry Principal Diagnosis Chest Pain Discharge Data Allergies Allergy/AdvReac Type Severity Reaction Status Date / Time codeine AdvReac Intermediate N/V Verified 06/01/21 17:11 Consultations 06/01/21 16:24 ED Decision to Admit Stat 06/01/21 20:23 Consult Cardiology Routine Procedures Performed Operation Date: 06/02/21 10:00 Actual Procedures p Cath, Left with Cors and Vent - Ryan Davis MD s Cineradiography w/Routine Exam - Ryan Davis MD Ordered Studies 06/02/21 09:07 CL Cath Imgs for PACS use only Routine Hospital Course (1) Chest pain: Patient is a 41 yr male with PMH of dyslipidemia GERD and sleep apnea who presents with continued chest pain over the past few days. Chest Pain Currently being treated for acute pericarditis S/P Cardiac Cath: Essentially normal right dominant coronary anatomy with minimal luminal irregularities only. Normal left ventricular systolic function. Systolic and left end-diastolic hypertension -CXR:No acute cardiopulmonary findings. Cardiac enzymes negative EKG showed no signs of acute ischemia Currently on colchicine, ibuprofen Needs follow-up with cardiology upon discharge Appreciate cardiology input (2) GERD (gastroesophageal reflux disease): Continue PPI Increased PPI to BID while on Nsaids (3) DEEPTI (obstructive sleep apnea): CPAP HS (4) Obesity (BMI 30-39.9): Following with OP weight mgmt. Continue Wellbutrin DVT Px: SQ heparin Code status: FULL CODE Total Time Total Time Spent Total Time Spent (In Minutes): 38 minutes Discharge Plan Discharge Items Patient Disposition: Home - Self-Care Reason For Visit: CP Discharge Diagnosis: Chest Pain Activity: Per Instructions section Exercise/Sports: Wait until after follow-up appointment Non-emergency contact: Primary Care Provider and Neuro Intensivist Physician Call non-emergency contact if: you have any medication questions, your symptoms worsen, your pain is concerning for you and you have a fever Follow-up/Referrals: Theron Mata DO [Physician] - (Date & Time 06/22/2021 1:00 PM Provider Theron Mata Jr., DO Department Cardiology, [facility] ) Claudio Meza DO [Primary Care Provider] - (Date & Time 06/07/2021 11:00 AM Provider Jovany Wright III, MD Department [facility] ) Diet: Heart Healthy Addtl Attending Provider Instructions: Follow-up with your primary care physician on 06/07/2021 11:00 AM Follow-up with your fuel handler Dr. Mata on 06/22/2021 1:00 PM Seek immediate medical attention if your symptoms reoccur or worsen Please take all medications as instructed on discharge list below. Please call if you have any questions or problems. You can reach a [facility] hospitalist on duty at [facility] 24 hours a day by calling [phone] [facility] Arts Therapist Provider Instructions: ACTIVITY RECOMMENDATIONS: Excess manipulation of the wrist should be avoided for the next 24-48 hours. * No lifting over 2 pounds (approximately a 1/2 gallon of milk) with the utilized arm for 24 hours. * No strenuous activity such as bowling or tennis for 3 days. * Keep the site of the procedure covered with a bandage for 24 hours. *You may shower the day after the procedure. Do not take a tub bath or submerge the puncture site in water for the next 3 days. *Do not operate any motorized equipment for 3 days. SPECIAL CARE INSTRUCTIONS: The site may be slightly bruised and sore following your procedure. Should any of the following occur, contact the Dr. who performed your procedure. 1. Redness/inflammation, swelling, chills, or fever, or colored drainage at procedure site within 3-7 days after your procedure. 2. Coldness, discoloration, ongoing numbness, severe pain, or swelling. Expect mild tingling of hand and tenderness at the puncture site for up to three days. If this persists beyond three days, or other symptoms develop, notify the Dr. who performed your procedure. BLEEDING: If the procedure site on your wrist begins to bleed, do not panic 1. Place 1 or 2 fingers firmly just slightly above the insertion site to stop the bleeding. You may be able to feel your pulse as you hold pressure. 2. Lift your finger after 5 minutes to see if the bleeding has stopped. 3. Once the bleeding has stopped, gently wipe the wrist area clean with a bandage. * If the bleeding from your wrist does not stop after 10 minutes, or if there is a large amount of bleeding or spurting, call 911 (do not drive yourself to the hospital). SKIN IRRITATION: * You may experience some redness and/or swelling in the area where radiation was administered. If any skin irritation occurs, please contact your family physician. FOLLOW UP VISIT: Keep any scheduled doctor appointments. Pending Studies at Discharge: No Stand-Alone Forms: My [facility], Smoking Cessation Medications and DC Order Prescriptions: Continued multivitamin Tablet 1 tab PO QAM RF: 0 bupropion HCl 150 mg tablet sustained-release 12 hr 150 mg PO BID RF: 0 esomeprazole magnesium 40 mg capsule,delayed release(DR/EC) 40 mg PO BID RF: 0 hydrochlorothiazide 12.5 mg capsule 12.5 mg PO QAM RF: 0 ibuprofen 600 mg Tablet 600 mg PO TID RF: 0 colchicine 0.6 mg tablet 0.6 mg PO BID RF: 0 Discharge Orders: Discharge Order (Routine); Ordered 06/02/21 Ordered By: Gil Lai Admission Data Admit Date/Time: 06/01/21 17:46 Attending Provider: Gil Lai Admit Provider: Sridhar Herrera Primary Care Provider: Claudio Meza Other Providers: Sridhar Herrera ; Ryan Davis
[2021-06-02 15:30] VITALS: BP 137/91; PULSE 65
--- NOTE | 2021-06-02 15:43 | Electrocardiogram Report ---
Test Reason : Blood Pressure : / mmHG Vent. Rate : 061 BPM Atrial Rate : 061 BPM P-R Int : 134 ms QRS Dur : 090 ms QT Int : 432 ms P-R-T Axes : 004 050 013 degrees QTc Int : 434 ms Normal sinus rhythm Normal ECG When compared with ECG of 01-JUN-2021 15:02, No significant change was found Confirmed by Rafael Brock ([id number] on 06/02/2021 3:43:16 PM Referred By: Theron Mata Confirmed By:Hudson Brock
== END 2021-06-02 15:41 | disposition home or self-care (01) ==
LOC: EDINP 14:45 → ED 14:45 → SUATTDRO 17:46 → EDINP 20:14
DX: K21.9 Gastro-esophageal reflux disease without esophagitis; Z79.899 Other long term (current) drug therapy; I20.9 Angina pectoris, unspecified; E66.9 Obesity, unspecified; G47.33 Obstructive sleep apnea (adult) (pediatric); Z88.8 Allergy status to other drugs, medicaments and biological substances; Z68.30 Body mass index [BMI] 30.0-30.9, adult